=== PATIENT | female | born 1960 | race Caucasian/White ===

== ENCOUNTER → 2016-06-08 | Outpatient (CLI) | payer OTHER ==
[2016-06-08 09:34] LABS: BASO % 0.8 %; BASO ABS # 0.03 K/uL (0-0.2); COMPLETE YES; EOS % 1.6 %; HEMATOCRIT 38.8 % (37-47); LYMPH % 38.8 %; LYMPH ABS # 1.45 K/uL (1.2-3.4); MEAN CELL VOLUME 90.2 fL (80-100); MEAN CORPUSCULAR HEMOGLOBIN 31.4 pg (25-34); MEAN CORPUSCULAR HGB CONC 34.8 g/dl (32-36); MEAN PLATELET VOLUME 9.5 fL (7.4-10.4); MONO % 8.8 %; PLATELET COUNT 199 K/uL (130-400); WHITE BLOOD COUNT 3.74 K/uL (4.8-10.8)
[2016-06-08 09:45] LABS: ALT/SGPT 31 U/L (12-78); BLOOD UREA NITROGEN 13 mg/dl (7-18); BUN/CREATININE RATIO 19.1 (10-20); CALCIUM 9.2 mg/dl (8.5-10.1); CARBON DIOXIDE 24 mmol/L (21-32); CHLORIDE 104 mmol/L (98-107); GLUCOSE 81 mg/dl (70-99); POTASSIUM 4.1 mmol/L (3.5-5.1); SODIUM 138 mmol/L (136-145)
[2016-06-08 09:55] LABS: ALB/GLOB RATIO 1.3 (0.9-2); ALKALINE PHOSPHATASE 57 U/L (45-117); AST/SGOT 24 U/L (15-37); THYROID STIMULATING HORMONE 0.356 uIu/ml (0.300-4.500)
== END | disposition home or self-care (01) ==
LOC: C.LAB1850 08:17
PROVIDERS: ATTEND Family Medicine
DX: R20.8 Other disturbances of skin sensation (principal); D72.819 Decreased white blood cell count, unspecified; E89.0 Postprocedural hypothyroidism

== ENCOUNTER → 2016-06-09 | Outpatient (CLI) | payer OTHER ==
--- NOTE | 2016-06-09 15:13 | DIAGNOSTIC IMAGING REPORT ---
THYROID ULTRASOUND CLINICAL HISTORY: Multinodular thyroid. COMPARISON STUDY: Thyroid ultrasound June 14, 2015. TECHNIQUE: Sonography of the thyroid gland was performed. FINDINGS: The right thyroid lobe measures 3.7 x 1.4 x 0.8 cm and the left lobe measures 3.6 x 1 x 0.8 cm. 2 partially calcified right lobe thyroid nodules are noted. The larger nodule measures 0.7 cm. The smaller nodule measures 0.5 cm. These are similar to exam of June 14, 2015. IMPRESSION: No significant change in 2 subcentimeter partially calcified right lobe thyroid nodules since exam of June 14, 2015. A follow-up ultrasound in one year is recommended to ensure stability. Electronically signed by: Cuco Navarro M.D. 06/09/2016 3:12 PM Dictated Date/Time: 06/09/2016 3:09 PM
== END | disposition home or self-care (01) ==
LOC: C.ULTRBC 14:37
PROVIDERS: ATTEND Family Medicine
DX: E04.2 Nontoxic multinodular goiter (principal); T56.91XA Toxic effect of unspecified metal, accidental (unintentional), initial encounter

== ENCOUNTER → 2016-09-25 | Outpatient (CLI) | payer OTHER ==
[~2016-09-25] MED LIST: ARMOUR THYROID PO; CALC-51 PO; CHELATION PO; CHOL100027 PO; CYAN500T PO; [UNRECOGNIZED DRUG - OTHER] PO
--- NOTE | 2016-09-25 16:26 | MAMMOGRAPHY REPORT ---
BILATERAL DIGITAL SCREENING MAMMOGRAM TOMOSYNTHESIS WITH CAD: 09/25/2016 CLINICAL HISTORY: Routine screening. Patient has no complaints. TECHNIQUE: Breast tomosynthesis in addition to standard 2D mammography was performed. Current study was also evaluated with a Computer Aided Detection (CAD) system. COMPARISON: Comparison is made to exams dated: 09/08/2015 mammogram, 09/04/2014 mammogram, 09/04/2014 ul trasound, 08/11/2014 mammogram, 04/30/2013 ultrasound, and 04/15/2013 mammogram - [facility]ter. BREAST COMPOSITION: The tissue of both breasts is extremely dense, which lowers the sensitivity of m ammography. FINDINGS: There is a stable metallic biopsy marker in the right upper outer quadrant. Scattered griffin gn rim calcifications in the breasts. Multiple bilateral circumscribed masses scattered in the breas ts, fluctuating in size compared to prior exams, most likely representing fluctuating cysts. No new suspicious mass, architectural distortion or cluster of microcalcifications is seen. IMPRESSION: ACR BI-RADS CATEGORY 1: NEGATIVE There is no mammographic evidence of malignancy. A 1 year screening mammogram is recommended. The pa tient will receive written notification of the results. Approximately 10% of breast cancers are not detected with mammography. A negative mammographic report should not delay biopsy if a clinically suggestive mass is present. Tejal Garcia M.D. ay/:09/25/2016 15:37:09 [employer]: Arcelia Garces, [facility] letter sent: Normal 1/2 BI-RADS Code: ACR BI-RADS Category 1: Negative
== END | disposition home or self-care (01) ==
LOC: C.MAMM 15:07
PROVIDERS: ATTEND Family Medicine
DX: Z12.31 Encounter for screening mammogram for malignant neoplasm of breast (principal)

== ENCOUNTER 2017-02-20 15:16 | Emergency (ER) | payer OTHER ==
[~2017-02-20] VITALS: Ht 162.6 cm; Wt 49.0 kg
[2017-02-20 15:25] VITALS: TEMP 36.6; Ht 162.6 cm; Wt 49.0 kg
--- NOTE | 2017-02-20 16:04 | DIAGNOSTIC IMAGING REPORT ---
L FINGER(S) MIN 2 VIEWS ROUTINE CLINICAL HISTORY: Left third digit bruising. COMPARISON: None FINDINGS: Alignment of the left third finger is anatomic. No acute fracture is identified. IMPRESSION: No acute fracture or dislocation of the left third finger. Electronically signed by: Cuco Navarro M.D. 02/20/2017 4:02 PM Dictated Date/Time: 02/20/2017 4:01 PM
--- NOTE | 2017-02-20 16:22 | EMERGENCY ROOM VISIT NOTE ---
ED Visit Note First contact with patient: 15:31 CHIEF COMPLAINT: Finger injury HISTORY OF PRESENT ILLNESS: This 56-year-old female patient presents to the emergency department approximately 24 hours after noticing discoloration of her left middle finger. The patient states last evening, she went for a run in the cold. She states when she came back she got in the shower and that is when she noticed a bluish discoloration of her left middle finger. She states she believes it to be a blood clot. The patient states there was no injury, and this has never happened before.. The patient rates the pain as numbness and 1/10 , however, she does still have sensation, it is just decreased. The patient has full range of motion of the finger. No tingling. No lacerations. No other injuries. The patient has not had previous fracture to this finger. The patient has taken nothing for the pain. REVIEW OF SYSTEMS: A 6 system review of systems was completed with positives and pertinent negatives in the HPI. ALLERGIES: None MEDICATIONS: [place] Thyroid, alpha lipoic acid, DNSA PMH: Hypothyroidism, metal toxicity SOCIAL HISTORY: The patient lives locally with family. She denies drug, alcohol , tobacco use. The patient states she does still see her PCP and [place], despite moving here 4 years ago. PHYSICAL EXAM: Vital Signs: Reviewed Nurse's notes, vital signs stable. GENERAL : This is a 56-year-old white female, in no acute distress, well-developed, well -nourished. MUSCULOSKELETAL: There is no deformity of the left middle finger. The patient has full flexion and full extension of the left middle finger and strength to resistance is 5/5. There is ecchymosis noted from the PIP distally. The skin is cool, however, all other fingers are cool as well. There is no ligamentous instability. There is no laceration. Capillary refill less than 2 seconds. No tenderness of the remaining fingers or hand. Full range of motion of the wrist. NEURO: Alert and oriented to person, place, and time. Normal sensation to light and sharp touch. RADIOLOGY: X-Ray Left Middle Finger: L FINGER(S) MIN 2 VIEWS ROUTINE CLINICAL HISTORY: Left third digit bruising. COMPARISON: None FINDINGS: Alignment of the left third finger is anatomic. No acute fracture is identified. IMPRESSION: No acute fracture or dislocation of the left third finger. Electronically signed by: Cuco Navarro M.D. 02/20/2017 4:02 PM Dictated Date/Time: 02/20/2017 4:01 PM EMERGENCY DEPARTMENT COURSE: I examined the patient. An x-ray of the left middle finger was reviewed by myself and radiologist and showed no acute fracture or dislocation. I do suspect Raynaud's Phenomenon as the cause of the patient's symptoms. Discharge instructions were reviewed and the patient was discharged home in good condition. The patient was discharged home in good condition. I did discuss the case with Dr. Whitfield, who was in agreement with the assessment and plan. I attest that I have personally reviewed the patient's current medication list. Patient was found to have normal blood pressure on screening and does not require follow-up. DIFFERENTIAL DIAGNOSIS: Clot, paresthesia, fracture, contusion, Raynaud's Phenomenon, cellulitis, malignancy, and others DIAGNOSIS: Left middle finger discoloration, Raynaud's Phenomenon Current/Historical Medications Scheduled Calcium Carbonate-Vitamin D (Calcium), 1 TAB PO BID Cholecalciferol (Vitamin D 1000 Unit), 1,000 INTER.UNIT PO DAILY Cyanocobalamin (Vitamin B-12), 500 MCG PO DAILY [[place] Thyroid], 52 MG PO DAILY [Oral Chelation Lla], 1 TAB PO DAILY [Oral Chelation], 1 TAB PO DAILY Allergies Coded Allergies: No Known Allergies (Unverified , 02/20/17) Vital Signs Date Time Temp Pulse Resp B/P (MAP) Pulse Ox O2 Delivery O2 Flow Rate FiO2 02/20/17 16:29 66 16 108/71 100 02/20/17 15:25 36.6 66 16 108/71 100 Departure Information Impression Primary Impression: Discoloration of skin of finger Additional Impression: Raynaud phenomenon Dispostion Home / Self-Care Condition GOOD Referrals No Doctor, Assigned (PCP) Syed Garcia D.O. Patient Instructions My [facility], Raynaud Disease Additional Instructions You were seen in the ED today with complaints of discoloration of your left middle finger. As discussed, x-ray of the finger was negative for acute fracture or injury. I do suspect possible Raynaud's Phenomenon as the cause of your symptoms. You have been provided with literature regarding this phenomenon. Try to soak the hand in lukewarm water to potentially help re-perfuse the finger. Please follow-up outpatient this week or early next week for re-check and further evaluation. Please consider orthopedic follow-up. You should find a local PCP, as this will be imperative for regular follow-up. Return to the emergency department for worsening numbness or tingling, decreased sensation, increased redness or swelling, increased pain, or other concerning symptoms. Problem Qualifiers Additional Impression: Raynaud phenomenon Raynaud?s-associated gangrene presence: without gangrene Qualified Codes: I73.00 - Raynaud's syndrome without gangrene
[2017-02-20] MEDS ORDERED: CHOL100027 PO (16:26)
[2017-02-20] MEDS ORDERED: CYAN500T PO (16:26)
[2017-02-20] MEDS ORDERED: CALC-51 PO (16:26)
[2017-02-20] MEDS ORDERED: ARMOUR THYROID PO (16:26)
[2017-02-20] MEDS ORDERED: CHELATION PO (16:26)
[2017-02-20] MEDS ORDERED: [UNRECOGNIZED DRUG - OTHER] PO (16:26)
[2017-02-20 16:29] VITALS: BP 108/71; PULSE 66; O2SAT 100
== END 2017-02-20 16:31 | disposition home or self-care (01) ==
LOC: C.EDB 15:18 → C.EDD 16:31
DX: I73.00 Raynaud's syndrome without gangrene (principal); E03.9 Hypothyroidism, unspecified; Z79.899 Other long term (current) drug therapy

== ENCOUNTER → 2017-04-18 | Outpatient (CLI) | payer OTHER ==
[2017-04-18 12:13] LABS: BASO % 0.8 %; BASO ABS # 0.03 K/uL (0-0.2); EOS % 3.8 %; EOS ABS # 0.15 K/uL (0-0.5); HEMATOCRIT 37.5 % (37-47); LYMPH % 35.5 %; LYMPH ABS # 1.39 K/uL (1.2-3.4); MEAN CELL VOLUME 91.9 fL (80-100); MEAN CORPUSCULAR HEMOGLOBIN 31.9 pg (25-34); MEAN CORPUSCULAR HGB CONC 34.7 g/dl (32-36); MEAN PLATELET VOLUME 9.7 fL (7.4-10.4); MONO % 7.1 %; MONO ABS # 0.28 K/uL (0.11-0.59); NEUT % 52.8 %; NEUT ABS # 2.07 K/uL (1.4-6.5); PLATELET COUNT 218 K/uL (130-400); RED CELL DISTRIBUTION WIDTH CV 12.6 % (11.5-14.5); RED CELL DISTRIBUTION WIDTH SD 42.4 fL (36.4-46.3); WHITE BLOOD COUNT 3.92 K/uL (4.8-10.8)
[2017-04-18 12:24] LABS: BLOOD UREA NITROGEN 14 mg/dl (7-18); CALCIUM 9.2 mg/dl (8.5-10.1); CARBON DIOXIDE 26 mmol/L (21-32); CREATININE 0.71 mg/dl (0.60-1.20); GLUCOSE 79 mg/dl (70-99); POTASSIUM 3.7 mmol/L (3.5-5.1); SODIUM 136 mmol/L (136-145)
[2017-04-18 12:35] LABS: ALKALINE PHOSPHATASE 59 U/L (45-117); ALT/SGPT 25 U/L (12-78); AST/SGOT 20 U/L (15-37); TOTAL PROTEIN 7.2 gm/dl (6.4-8.2)
[2017-04-18 12:37] LABS: T3 FREE 2.44 pg/ml (2.30-4.20); TESTOSTERONE,TOTAL 27.3 ng/dl
== END | disposition home or self-care (01) ==
LOC: C.LAB1850 10:07
PROVIDERS: ATTEND Internal Medicine
DX: Z00.00 Encounter for general adult medical examination without abnormal findings (principal); M81.0 Age-related osteoporosis without current pathological fracture; R71.8 Other abnormality of red blood cells; N95.1 Menopausal and female climacteric states; D72.819 Decreased white blood cell count, unspecified; E03.9 Hypothyroidism, unspecified; Z82.49 Family history of ischemic heart disease and other diseases of the circulatory system